=== PATIENT | female | born 1990 | race Caucasian/White ===

== ENCOUNTER 2016-12-19 04:15 | Emergency (ER) | payer OTHER ==
[~2016-12-19] VITALS: Ht 139.7 cm; Wt 56.8 kg
[~2016-12-19 04:15] MED LIST: NOMED
[2016-12-19 04:18] VITALS: BP 135/87; PULSE 87; RESP 26; O2SAT 100
[2016-12-19 04:57] LABS: BASOPHILS % (AUTO) 0.3 % (0-3); EOSINOPHILS % (AUTO) 4.1 % (0-5); MONOCYTES % (AUTO) 7.5 % (4-12); Mean Corpuscular Hemoglobin 28.3 pg (27.0-35.0); NEUTROPHILS % (AUTO) 49.9 % (40-74); Platelet Count 327 bil/L (150-400)
--- NOTE | 2016-12-19 05:27 | ED.REPORT ---
HPI-Abd Pain F Under 38 Date of Service December 19, 2016 ED Provider: Capo Ramirez MD Patient is a 26-year-old female with past medical history significant for latent TB, who presents to [facility] Emergency Department complaining of abdominal pain, nausea and vomiting for 2 days. Patient lives with her 10-year-old son and her mother. Patient's mother got sick first, with the same symptoms, then the patient got sick, and finally patient's son got sick yesterday. She denies chest pain, shortness of breath, chills, fever, diarrhea, dysuria. Her last menstrual period was about 3 weeks ago. Nursing Notes Stated Complaint: ABDOMINAL PAIN, VOMITING Chief Complaint: Female Abdominal Pain Nursing Notes Reviewed: Yes Allergies: Coded Allergies: morphine (Verified Allergy, Intermediate, hives, 12/19/16) Miscellaneous Medications No Historical Medication (No Historical Medication) Ea General Time Seen by MD: 04:45 Chief Complaint Abdominal pain, Nausea, Vomiting moderate Hx Obtained From: Patient Arrived By: Walk-in Onset Occurred: 2 days ago Symptom Duration: Since onset Location: : Diffuse Severity: Current: Moderate Recent Healthcare: No recent doctor visit Past Medical History Past Medical History NONE, has a positive TB Past Surgical History Tubal Reports: Family History Reviewed, not relevant Smoking History Current Every Day Smoker, Never Smoker Social History Alcohol Use: Denies alcohol use Drug Use: THC Occupation lives with Mom, no work or school Ambulatory Status Independent Review of Systems A comprehensive review of systems has been conducted with the patient and was found to be negative except what is mentioned in the history of present illness. Physical Exam Initial Vital Signs Vital Signs (First) Date Time Temp Pulse Resp B/P Pulse Ox O2 Delivery O2 Flow Rate FiO2 12/19/16 04:18 36.4 87 26 135/87 100 Room Air Initial VS: Reviewed (RR 26) Head / Eyes: Atraumatic, Normocephalic, PERRL ENT: Mucous membranes moist, Conjunctiva normal, No scleral icterus Neck: Supple, Non-tender, Full range of motion Lymphatic: No lymphadenopathy Extremities: Vascular intact, Neuro intact, No swelling, No tenderness Skin: Warm, Dry, No cyanosis Neurologic: Alert, Oriented, Nonfocal Psychiatric: Mood/affect normal, Behavior normal, Normal thought content General/Constitutional: Awake, Alert, No acute distress, Well appearing, Well developed, Well nourished, Cooperative Respiratory / Chest: Breath sounds NL, No respiratory distress, No rales, No rhonchi, No wheezing, No retractions Cardiovascular: Heart rate NL, Regular rhythm, No murmurs Abdomen: Atraumatic, Soft, No guarding, No rebound, BS normoactive Tenderness/Guarding/Rebound: Positive: Tender epigastric Back: Atraumatic, Non-tender, No muscle spasm Interpretation & Diagnostics Unremarkable CBC, UA CMP pending UA test negative Lab Results Interpretation Result Diagram: 12/19/160 12/19/160 Test 12/19/16 04:40 White Blood Count 7.4th/mm3 (3.8-10.1) Red Blood Count 4.63mil/mm3 (3.90-5.20) Hemoglobin 13.1g/dL (12.0-15.6) Hematocrit 39.8% (35.0-46.0) Mean Corpuscular Volume 86.0fL (81-100) Mean Corpuscular Hemoglobin 28.3pg (27.0-35.0) Mean Corpuscular Hemoglobin Concent 32.9% (32.0-37.0) Red Cell Distribution Width 13.2% (12.3-15.4) Platelet Count 327bil/L (150-400) Neutrophils (%) (Auto) 49.9% (40-74) Lymphocytes (%) (Auto) 37.9% (14-46) Monocytes (%) (Auto) 7.5% (4-12) Eosinophils (%) (Auto) 4.1% (0-5) Basophils (%) (Auto) 0.3% (0-3) Hold Urine Received (Received) Sodium Level 137mEq/L (134-144) Potassium Level 3.5mEq/L (3.5-5.2) Chloride Level 99mEq/L (97-108) Carbon Dioxide Level 23mmol/L (18-29) Blood Urea Nitrogen 18mg/dL (6-20) Creatinine 0.49mg/dL (0.57-1.00) Estimat Glomerular Filtration Rate 215mL/min (>59) Glucose Level 104mg/dL (60-99) Calcium Level 8.8mg/dL (8.5-10.1) Magnesium Level 1.9mg/dL (1.6-2.6) Total Bilirubin 0.3mg/dL (0.0-1.2) Aspartate Amino Transf (AST/SGOT) 26U/L (0-50) Alanine Aminotransferase (ALT/SGPT) 27U/L (0-32) Alkaline Phosphatase 73U/L (25-150) Total Protein 7.6g/dL (6.4-8.4) Albumin 4.0g/dL (3.4-5.0) Lipase 29U/L (13-60) Lab values outside NL range: no clinical significance. Re-Eval/Medical Decision Med Decision/Clinical Course In summary this is a 26-year-old female who presents with GI symptoms: Nausea, vomiting, epigastric abdominal pain for 2 days. Other family members such as grandmother and son also sick with the same symptoms. Suspect viral gastroenteritis. CBC, CMP and UA unremarkable. Negative test. Patient received Zofran and Tylenol for symptomatic relief. Patient responded well and reported symptomatic improvement. Patient tolerates oral fluids well. Patient is hemodynamically stable and does not seem to be fluid depleted and is safe to be discharged home. Counseled Regarding: Diagnosis, Lab results, Need for follow-up, When/why to return to ED Discharge & Departure Shift Change Sign-Out Response to Therapy: Improved Primary Impression: Viral gastroenteritis Additional Impression: Nausea & vomiting Vomiting type: unspecified Vomiting Intractability: unspecified Qualified Code: R11.2 - Nausea with vomiting, unspecified Disposition: Home Discharge Condition Condition: Stable Patient Instructions: Gastroenteritis (ED) Additional Instructions: Thank you for seeking care at the emergency room today. All your lab work is reassuring. Based on your presentation, we believe you have viral gastroenteritis. This is a self-limiting condition and you should start feeling better within the next few days. Make sure you drink plenty of fluids and get much needed rest. Please follow-up with your primary care provider within the week. Please return to emergency room immediately if your symptoms worsen. Thank you for letting us partake in today. Referrals: [facility] (PCP) EDSupervising Provider for APC: Capo Ramirez MD Attending Statment The patient was seen and examined together with Dr.Oksana Hoover and I agree with the history, exam and plan as outlined in the note above. copies to: [facility] Joya Hoover DO December 19, 2016 05:27 Capo Ramirez MD December 19, 2016 06:48
[2016-12-19 05:40] LABS: Magnesium 1.9 mg/dL (1.6-2.6)
== END 2016-12-19 06:34 | disposition home or self-care (01) ==
LOC: SED 04:15
DX: A08.4 Viral intestinal infection, unspecified (principal); F17.200 Nicotine dependence, unspecified, uncomplicated; Z88.5 Allergy status to narcotic agent